=== PATIENT | female | born 1990 | race Caucasian/White ===

== ENCOUNTER 2020-12-25 12:33 | Emergency (ER) | payer OTHER, SELFPAY ==
--- NOTE | ~2020-12-25 | XR_ITS ---
EXAMINATION: XR ankle LT min 3V DATE: 12/25/2020 13:13 INDICATION: Lateral left ankle pain 3 days post fall down steps. TECHNIQUE: Anteroposterior, oblique, mortise, and lateral views of the left ankle were obtained. COMPARISON: None. FINDINGS: Bone alignment is normal. No fracture. Joint spaces are normal. No left ankle joint effusion. Mild so ft tissue along about the lateral malleolus. IMPRESSION: 1. No left ankle joint effusion or osseous abnormality. Reviewed, dictated and finalized at location A.
[2020-12-25 12:55] VITALS: BP 104/50; PULSE 64; RESP 20; TEMP 37.1; O2SAT 100
--- NOTE | 2020-12-25 13:24 | ED.LOWEXIN ---
HPI - Extremity Injury (Lower) General Chief Complaint: Extremity Injury, Lower Stated Complaint: Fell at home, swollen left Ankle Source: patient and RN notes reviewed Limitations: no limitations History of Present Illness HPI Narrative: The obese patient, previously mostly healthy, presents with left ankle pain. Patient states she slipped and fell over the weekend. She complains of mild lateral pain is worse with motion, better at rest. No bleeding, deformity Related Data Allergies Allergy/AdvReac Type Severity Reaction Status Date / Time No Known Allergies Allergy Verified 12/25/20 13:27 Review of Systems Review of Systems: Narrative: General/Constitutional: No weight loss,fever Eyes: N0: Redness,discharge Ears/Nose/Throat: No: Epistaxis,ear discharge Respiratory: Denies: Hemoptysis Gastrointestinal: No Vomiting, Bleeding-rectal Skin: No Lumps, eruption Neurologic: No Focal Weakness,Sz Hematologic: Denies: Petechiae/Purpura Psychiatric: No: Suicida ideationl All Other Systems: Reviewed and Negative PMFSH Comments At time of signature, agree with nursing past medical, surgical, social and family history. There is no relevant family history pertinent to the presenting complaint Exam Narrative: Exam Narrative: General Appearance: Well appearing, Well nourished, No distress EYE: PERRLA, EOMI, Conjunctiva clear Ears: External ear normal, Auditory canal normal Nose: Normal nose, Nares clear Mouth/Throat: Normal appearing, Normal lips Neck: Supple Respiratory: Airway patent, No respiratory distress Musculoskeletal: Normal strength (mostly intact, limited flexion/extension by pain), Tenderness ( laterally, with mild decreased ROM), Swelling (laterally), Other (no anterior drawer, no collateral laxity, no Achilles tenderness, no fifth MT tenderness) Skin: Warm, Dry, Normal color Neurological: A&O x3, Speech clear, CN II-XII intact Psychiatric: Normal mood, Normal affect Course Course Emergency Course: Films visualized, interpreted by radiologist, agree, normal see report Vital Signs Vital signs: Vital Signs Temperature 98.8 F 12/25/20 12:55 Pulse Rate 64 12/25/20 12:55 Respiratory Rate 20 12/25/20 12:55 Blood Pressure 104/50 L 12/25/20 12:55 Pulse Oximetry 100 12/25/20 12:55 Temperature 98.8 F 12/25/20 12:55 Pulse Rate 64 12/25/20 12:55 Respiratory Rate 20 /21/21 12:55 Blood Pressure 104/50 L 12/25/20 12:55 Pulse Oximetry 100 12/25/20 12:55 Discharge Plan Discharge Clinical Impression: Left ankle sprain Qualifiers: Encounter type: initial encounter Involved ligament of ankle: unspecified ligament Qualified Code(s): S93.402A - Sprain of unspecified ligament of left ankle, initial encounter Patient Disposition: Home, Self-Care Condition: Stable Instructions: Ankle Sprain (ED) Prescriptions: New tramadol 50 mg tablet 50 mg PO TID PRN (Reason: pain) Qty: 14 RF: 0 Follow-up/Referrals: PHYSICIAN,SOFTWARE PROJECT MANAGER [Primary Care Provider] -
== END 2020-12-25 13:30 | disposition home or self-care (01) ==
PROVIDERS: Emergency Provider Emergency Medicine
DX: S93.402A Sprain of unspecified ligament of left ankle, initial encounter (principal); W01.0XXA Fall on same level from slipping, tripping and stumbling without subsequent striking against object, initial encounter
CPT/HCPCS: 73610; 99213; G0463